=== PATIENT | male | born 1955 | race Two or more races ===

== ENCOUNTER → 2017-02-10 | Day surgery (SDC) | payer OTHER ==
[2017-02-04 13:36] LABS: Urine RBC None Seen /hpf (0 - 3)
[2017-02-04 13:54] LABS: Urine Bilirubin Negative (Negative); Urine Blood Negative /uL (Negative); Urine Color Yellow (Yellow); Urine Glucose Normal (Normal); Urine Ketone Negative (Negative); Urine Nitrite Negative (Negative); Urine Urobilinogen Normal (Negative); Urine pH 7.5 (5.0-8.0)
[2017-02-04 13:55] LABS: Basophils # (auto) 0 uL; Basophils % (auto) 0.7 % (0.0-2.0); Eosinophils # (auto) 0.1 uL; Eosinophils % (auto) 2.2 % (0.0-7.0); Hemoglobin 15.4 g/dL (13.5-17.5); Lymphocytes % (auto) 35.7 % (10.0-50.0); Mean Corpuscular Hemoglobin 31.1 pg (28.0-32.0); Mean Corpuscular Hgb Conc. 34.2 g/dL (32.0-36.0); Mean Corpuscular Volume 90.8 fL (80.0-100.0); Mean Platelet Volume 9.6 fL (7.4-10.4); Monocytes # (auto) 0.6 uL; Monocytes % (auto) 10.5 % (0.0-12.0); Neutrophils # (auto) 2.9 uL; Neutrophils % (auto) 50.9 % (37.0-80.0); Nucleated Red Blood Cells % 0.1 %; Platelet Count (auto) 199 10^3/uL (140-450); White Blood Cell 5.7 10^3/uL (4.4-10.8)
[2017-02-04 14:10] LABS: INR 0.98 (0.9-1.15); Partial Thromboplastin Time 31.1 sec (22.64-33.71); Prothrombin Time 10.7 sec (9.37-12.3)
[2017-02-04 14:12] LABS: Albumin 3.8 g/dL (3.4-5.0); BUN/Creatinine Ratio 19.5; Bilirubin, Total 0.5 mg/dL (0.2-1.0); Calcium 8.8 mg/dL (8.5-10.1); Potassium 3.8 mmol/L (3.5-5.1); Total Protein 7.5 g/dL (6.4-8.2)
[~2017-02-10] VITALS: Ht 177.8 cm; Wt 86.6 kg
[~2017-02-10] MED LIST: ACCU-CHEK COMFORT CURVE STRIP VI ONE; ASPI81TA27 PO; ATOR10TA52 PO; BUPIVACAINE 0.25% INJ 50ML VIAL ONE; DEXAMETHASONE SOD PHOS 10MG/1ML VIAL INJ ONE; GLYCOPYRROLATE 0.2 MG/ML 1ML VIAL ONE; HYDROmorphone HCL 2 MG/ML VL IV PRN; KETOROLAC TROMETH 30 MG/ML 1ML VIAL IV ONE; KETOROLAC TROMETH 30 MG/ML 1ML VIAL ONE; LABETALOL HCL 5 MG/ML 4ML SYRINGE IV PRN; LEVO150T10 PO; LIDOCAINE 1% HCL (LOCAL ANESTH.) INJ 20ML MDV ONE; LISI2.5T47 PO; MEPERIDINE HCL (50 MG/ML) 1 ML VIAL ONE; METF-490 PO; MIDAZOLAM HCL 1MG/1ML-2 ML VIAL IV PRN; MIDAZOLAM HCL 1MG/1ML-2 ML VIAL ONE; MORPHINE SULF INJ 2 MG/ML SYRINGE 1ML IV PRN; NEOSTIGMINE 1 MG/ML INJ (10mg/10ML VIAL) ONE; ONDANSETRON HCL 4 MG/2 ML VIAL IV ONE; PHENYLEPHRINE HCL 10 MG/ML VL IV ONE; PROPOFOL 10 MG/ML 20 ML IV ONE; RANI150C11 PO; SUCCINYLCHOLINE CHLORIDE 20 MG/ML 10ML VIAL IV ONE; [UNRECOGNIZED DRUG - CODE] PO; ceFAZolin 1GM VL ONE; ceFAZolin 1GM/50ML D5W 50 ML IV ONE; ePHEDrine SULFATE 50 MG/ML AMP IV PRN; fentaNYL CITRATE 100 MCG/2 ML VL ONE
[2017-02-10 12:17] VITALS: BP 114/74
== END | disposition home or self-care (01) ==
LOC: SUR 06:50
PROVIDERS: ATTEND Surgery
DX: K40.90 Unilateral inguinal hernia, without obstruction or gangrene, not specified as recurrent (principal); E11.9 Type 2 diabetes mellitus without complications; E03.9 Hypothyroidism, unspecified; I10 Essential (primary) hypertension
CPT/HCPCS: 36415; 49650; 80053; 81001; 82962; 85025; 85610; 85730; 86850; 86900; 86901; C1713; C1781; J0330; J0690; J1100; J1885; J2175; J2250; J2370; J2704; J3010; J3490; J7030; S2900; J2001